=== PATIENT | female | born 1935 | race Hispanic/Latino ===

== ENCOUNTER 2019-06-18 12:41 | Observation (INO) | payer MEDICARE ==
[~2019-06-18] VITALS: Ht 157.5 cm; Wt 51.3 kg
[2019-06-18 13:32] LABS: BILIRUBIN,URINE NEGATIVE (NEGATIVE); CLARITY,URINE SL CLOUDY (CLEAR); COLOR,URINE YELLOW (YELLOW); KETONES,URINE NEGATIVE (NEGATIVE); LEUKOCYTE ESTERASE ,URINE NEGATIVE (NEGATIVE); NITRITE,URINE NEGATIVE (NEGATIVE); PROTEIN,URINE DIPSTICK NEGATIVE (NEGATIVE); URINE UROBILINOGEN 0.2 mg/dL (0.2 - 1)
[2019-06-18 14:19] LABS: EPITHELIAL CELLS,URINE RARE /LPF; RBC,URINE 0-5 /HPF (0-5)
--- NOTE | 2019-06-18 14:26 | Diagnostic Imaging Report ---
Examination: CT head without contrast Clinical Indication: Fall; head injury. Technique: Transaxial noncontrast images from the skull base through the vertex were obtained. Sagittal and coronal reformatted images were done. Dose modulation, iterative reconstruction, and/or weight based adjustment of the mA/kV was utilized to reduce the radiation dose to as low as reasonably achievable. Comparison: None. Findings: Scalp: No abnormalities. Bones: Intact. No fractures. No blastic or lytic lesions. Brain sulci: Appropriate for patient's age. Ventricles: Normal in size and configuration. No hydrocephalus. . Extra-axial space: No abnormalities. Parenchyma: There are mild confluent areas of low-attenuation within subcortical and periventricular white matter, nonspecific, but could represent microvascular ischemic disease. No masses, hemorrhage, or acute or chronic cortical based vascular insults. Suprasellar region: No abnormalities. Craniocervical junction: The foramen magnum is patent. No Chiari one malformation. Incidental findings: Atherosclerotic calcification of the cavernous and supraclinoid internal carotid arteries. Impression: 1. No acute intracranial finding. 2. Mild chronic microvascular ischemic change. Signed by: Dr. Kamala Winters M.D. on 06/18/2019 2:22 PM
[2019-06-18 14:38] LABS: BASOPHILS % 0.4 % (0.0-1.0); EOSINOPHILS % 0.1 % (0.0-6.0); HEMATOCRIT 38.3 % (34.2-44.1); HEMOGLOBIN 12.6 g/dL (12.0-16.0); LYMPHOCYTES # (AUTO) 1.3 (1.0-3.2); LYMPHOCYTES % 13.5 % (18.0-39.1); MEAN CORPUSCULAR HEMOGLOBIN 30.1 pg (28-32); MEAN CORPUSCULAR HGB CONC 32.9 g/dL (31-35); MEAN CORPUSCULAR VOLUME 91.4 fL (81-99); MONOCYTES # (AUTO) 0.6 (0.2-0.8); MONOCYTES % 6.1 % (4.4-11.3); NEUTROPHILS # (AUTO) 7.7 (2.1-6.9); NEUTROPHILS % 79.4 % (38.7-80.0); PLATELET COUNT 251 x10e3/uL (140-360); RED BLOOD COUNT 4.19 x10e6/uL (3.6-5.1); RED CELL DISTRIBUTION WIDTH 13.1 % (11.7-14.4)
[2019-06-18] MEDS: SODIUM CHLORIDE 0.9% 1000ML 1,000 ML IV ONE ×2 (14:39→15:12)
[2019-06-18 14:54] LABS: ALANINE AMINOTRANSFERASE 8 IU/L (0-55); ALBUMIN 3.9 g/dL (3.5-5.0); ALKALINE PHOSPHATASE 55 IU/L (40-150); ANION GAP 15.9 mmol/L (8-16); BLOOD UREA NITROGEN 16 mg/dL (7-26); BUN/CREATININE RATIO 20 (6-25); CALCIUM 10.5 mg/dL (8.4-10.2); CARBON DIOXIDE 25 mmol/L (22-29); CHLORIDE 102 mmol/L (98-107); CREATININE, SERUM 0.81 mg/dL (0.57-1.11); EST GLOMERULAR FILTRATION RATE > 60 ML/MIN (60-); GLUCOSE 105 mg/dL (74-118); POTASSIUM 3.9 mmol/L (3.5-5.1); SODIUM 139 mmol/L (136-145)
--- NOTE | 2019-06-18 15:04 | Diagnostic Imaging Report ---
EXAMINATION: CHEST SINGLE (PORTABLE) INDICATION: Trauma COMPARISON: None FINDINGS: LINES/TUBES:None LUNGS:The lungs are well-inflated. No focal consolidation or pulmonary edema. PLEURA:No pleural effusion or pneumothorax. MEDIASTINUM:The cardiomediastinal silhouette appears normal in size and shape. BONES/SOFT TISSUES:No acute osseous injury. Metallic anchors in the right proximal humerus. Partially visualized cervical spine fusion hardware. ABDOMEN:No free air under the diaphragm. IMPRESSION: No displaced fracture. No focal pneumonia or pulmonary edema. Signed by: Kirill Carlos MD on 06/18/2019 3:01 PM
--- NOTE | 2019-06-18 15:05 | Diagnostic Imaging Report ---
EXAMINATION: PELVIS AP 1-2 VIEWS INDICATION: Trauma COMPARISON: None FINDINGS: AP image of the pelvis demonstrates no acute fracture or dislocation. Mild degenerative changes of the partially visualized lower lumbar spine and of both hip joints. Nonobstructive bowel gas pattern. Phleboliths in the pelvis. IMPRESSION: No acute osseous injury. Signed by: Kirill Carlos MD on 06/18/2019 3:02 PM
[2019-06-18 15:13] LABS: MAGNESIUM 1.8 MG/DL (1.3-2.1)
[2019-06-18] MEDS ORDERED: ONDANSETRON HCL INJ 2MG/ML 2ML 2 MG/ML VIAL IV PRN (17:30)
[2019-06-18] MEDS ORDERED: SODIUM CHLORIDE FLUSH 10 ML SYR INJ PRN (17:30)
--- OUTSIDE RECORDS SUMMARY | 2019-06-18 17:59 | XMS REPORT ---
Author Author [facility] Address Unknown Phone Unavailable Care Team Providers Care [employer] Attendant Name Role Phone Swapna BARTLETT Unavailable Unavailable Problems This patient has no known problems. Allergies, Adverse Reactions, Alerts This patient has no known allergies or adverse reactions. Medications This patient has no known medications. Results Test Description Test Time Test Comments Text Results Atomic Results Result Comments PELVIS AP 1-2 VIEWS 2019-06-18 15:01:00 [place] [address] Patient Name: JERRY BOSTON MR #: [id number] : 1935 Age/Sex: 83/F Req #: [id number] Adm Physician: Ordered by: MISAEL BARTLETT MD Report #: [id number] Location: ER Room/Bed: Procedure: [id number] DX/PELVIS AP 1-2 VIEWS Exam Date: Exam Time: REPORT STATUS: Signed EXAMINATION: PELVIS AP 1-2 VIEWS INDICATION: Trauma COMPARISON: None FINDINGS: AP image of the pelvis demonstrates no acute fracture or dislocation. Mild degenerative changes of the partially visualized lower lumbar spine and of both hip joints. Nonobstructive bowel gas pattern. Phleboliths in the pelvis. IMPRESSION: No acute osseous injury. Signed by: Wolfgang Baez MD on 06/18/2019 3:02 PM Dictated By: WOLFGANG BAEZ MD 01 Transcribed By: RAJIV on 06/18/19 150 COPY TO: MISAEL BARTLETT MD CHEST SINGLE (PORTABLE) 2019-06-18 15:00:00 [place] [address] Patient Name: JERRY BOSTON MR #: [id number] : 1935 Age/Sex: 83/F Req #: [id number] Adm Physician: Ordered by: MISAEL BARTLETT MD Report #: [id number] Location: ER Room/Bed: Procedure: [id number] DX/CHEST SINGLE (PORTABLE) Exam Date: Exam Time: REPORT STATUS: Signed EXAMINATION: CHEST SINGLE (PORTABLE) INDICATION: Tr auma COMPARISON: None FINDINGS: LINES/TUBES:None LUNGS:The lungs are well-inflated. No focal consolidation or pulmonary edema. PLEURA:No pleural effusion or pneumothorax. MEDIASTINUM:The cardiomediastinal silhouette appears normal in size and shape. BONES/SOFT TISSUES:No acute osseous injury. Metallic anchors in the right proximal humerus. Partially visualized cervical spine fusion hardware. ABDOMEN:No free air under the diaphragm. IMPRESSION: No displaced fracture. No focal pneumonia or pulmonary edema. Signed by: Wolfgang Baez MD on 06/18/2019 3:01 PM Dictated By: WOLFGANG BAEZ MD 00 Transcribed By: RAJIV on 06/18/191500 COPY TO: MISAEL BARTLETT MD CT BRAIN WO 2019-06-18 14:18:00 [place] [address] Patient Name: JERRY BOSTON MR #: [id number] : 1935 Age/Sex: 83/F Req #: [id number] Adm Physician: Ordered by: MISAEL BARTLETT MD Report #: [id number] Location: Room/Bed: Procedure: [id number] CT/CT BRAIN WO Exam Date: 06/18/19 Exam Time: 1338 REPORT STATUS: Signed Examination: CT head without contrast Clinical Indication: Fall; head injury. Technique: Transaxial noncontrast images from the skull base through the vertex were obtained. Sagittal and coronal reformatted images were done. Dose modulation, iterative reconstruction, and/or weight based adjustment of the mA/kV was utilized to reduce the radiation dose to as low as reasonably achievable. Comparison: None. Findings: Scalp: No abnormalities. Bones: Intact. No fractures. No blastic or lytic lesions. Brain sulci: Appropriate for patient's age. Ventricles: Normal in size and configuration. No hydrocephalus. . Extra-axial space: No abnormalities. Parenchyma: There are mild confluent areas of low- attenuation within subcortical and periventricular white matter, nonspecific, but could represent microvascular ischemic disease. No masses, hemorrhage, or acute or chronic cortical based vascular insults. Suprasellar region: No abnormalities. Craniocervical junction: The foramen magnum is patent. No Miko ri one malformation. Incidental findings: Atherosclerotic calcification of the cavernous and supraclinoid internal carotid arteries. Impression: 1. No acute intracranial finding. 2. Mild chronic microvascular ischemic change. Signed by: Dr. Kamala Winters M.D. on 06/18/2019 2:22 PM Dictated By: KAMALA GALLEGOS MD [id number] Transcribed By: RAJIV on 06/18/191421 COPY TO: MISAEL BARTLETT MD
--- NOTE | 2019-06-18 19:51 | NUR ---
Received patient from ER. Patient in stable condition, no s/s of distress or c/o pain at this time. All safety measures in place. Family at bedside. Will continue to monitor.
[2019-06-18] MEDS ORDERED: OXYBUTYNIN CHLOR5 MG PO (20:06)
[2019-06-18] MEDS ORDERED: LOSARTAN POTAS100 MG PO (20:06)
[2019-06-18] MEDS ORDERED: CARBIDOPA-LEVO1 EAC1 PO (20:06)
[2019-06-18] MEDS ORDERED: SIMVASTATIN40 MG PO (20:06)
[2019-06-18] MEDS ORDERED: HYDROCHLOROTH12.5 MG PO (20:06)
[2019-06-18 20:54] VITALS: BP 176/73
[2019-06-18] MEDS: SODIUM CHLORIDE 0.9% 1000ML 1,000 ML IV SCH (21:20)
[2019-06-18 21:32] VITALS: BP 176/73
[2019-06-18 21:58] VITALS: BP 176/73
[2019-06-18 22:13] VITALS: BP_SYST 135; BP_SYST 151; BP_SYST 160; BP_DIAS 56; BP_DIAS 69; BP_DIAS 71
[2019-06-19] VITALS (8 sets, daily range): BP systolic 138–155; BP diastolic 49–70
[2019-06-19] MEDS: SODIUM CHLORIDE 0.9% 1000ML 1,000 ML IV SCH ×3 (08:37→20:18)
[2019-06-19] MEDS: LOSARTAN POTASSIUM 100 MG TAB PO SCH (12:26)
--- NOTE | 2019-06-19 13:46 | NUR ---
PATIENT IS AWAKE AND IN STABLE CONDITION WITH NO S/S OF RESPIRATORY DISTRESS. NO PAIN VOICED. IV FLUIDS INFUSING. TELEMETRY APPLIED. [id number] PRESENT IN ROOM. BED ALARM APPLIED. CALL LIGHT IS WITHIN REACH, PATIENT IS INSTRUCTED TO CALL FOR ASSISTANCE NEEDED.
[2019-06-19] MEDS: CARBIDOPA/LEVODOPA 25/100 TAB PO SCH ×2 (15:16→20:18)
--- NOTE | 2019-06-19 17:56 | History and Physical ---
Ms. Palomares is a pleasant 83-year-old woman with Parkinson disease, who presented to the emergency room in the afternoon of with a complaint of having fallen down at home. HISTORY OF PRESENT ILLNESS: The family tells us it appears that she may have been walking going to the bathroom at night and may have fallen and hit her head, perhaps slipping on a carpet and was found by family later on after some period of time, perhaps of unconsciousness. PAST MEDICAL HISTORY: Significant for Parkinson disease as mentioned above. Family says she has predominantly rigidity rather than tremor. She was seen by Dr. Zuluaga in the past and given carbidopa/levodopa. She continues to take this medication. She reports that she has had gallbladder surgery and carpal tunnel surgeries. CURRENT MEDICATIONS: At home include carbidopa/levodopa 25/100 t.i.d., hydrochlorothiazide 12.5 mg daily, losartan 100 mg daily, oxybutynin 5 mg daily as needed, and simvastatin 40 mg daily. PERSONAL AND SOCIAL HISTORY: She does not smoke or drink. She lives at home with family. REVIEW OF SYSTEMS: CARDIAC: She denies any chest pain, palpitations, shortness of breath, or edema. PHYSICAL EXAMINATION: GENERAL: At this time shows elderly Latin-Tuvaluan woman, who speaks only Wolof. Alert and oriented. VITAL SIGNS: Blood pressure 140/60, pulse 60 and regular. HEAD, EYES, EARS, NOSE, AND THROAT: Remarkable for partial dentures. No significant contusion is visible. NECK: No jugular venous distention. No bruits. THORAX: Heart sounds S1 and S2 are equal. No murmurs. LUNGS: Clear. ABDOMEN: Protuberant. Normal bowel sounds. EXTREMITIES: There are no cyanosis, clubbing, or edema. DIAGNOSTIC DATA: Chest x-ray is unremarkable. Pelvis x-ray unremarkable. CT of the head suggests calcification in the internal carotids with no other significant abnormality. Echocardiogram shows normal left ventricular function with EF 62% and mild aortic insufficiency. ASSESSMENT: 1. Fall. 2. Possible concussion. 3. Parkinson disease. PLAN: We will ask for Neurology consultation and obtain carotid Doppler scan and monitor on telemetry. Further management based on clinical course. MD DWIGHT Jimenes/HANS /[id number] cc: MD Mary Holguin MD
--- NOTE | 2019-06-19 19:48 | NUR ---
PATIENT IS SITTING IN THE CHAIR- IN STABLE CONDITION WITH NO S/S OF RESPIRATORY DISTRESS. NO PAIN VOICED. IV FLUIDS INFUSING. [id number] PRESENT IN ROOM. CALL LIGHT IS WITHIN REACH, PATIENT IS INSTRUCTED TO CALL FOR ASSISTANCE NEEDED. BEDSIDE REPORT GIVEN TO ONCOMING NURSE.
[2019-06-19] MEDS ORDERED: SIMVASTATIN 40 MG TAB PO SCH (21:00)
--- NOTE | 2019-06-19 22:08 | Consultation ---
DATE OF CONSULTATION: 06/19/2019 Neurology Consult Note HISTORY OF PRESENT ILLNESS: Ms. Palomares is an 83-year-old right-hand dominant woman with past medical history significant for hypertension, hyperlipidemia, osteoarthritis, and Parkinson's disease, admitted to [facility] under observation status on June 18, 2019, status post an unwitnessed fall. According to the patient, at approximately 0600 on the day of admission, she arose from bed to use the restroom. While ambulating either to or from the restroom, the patient experienced a sudden onset of dizziness, which is further described as lightheadedness and collapsed to the floor. Ms. Palomares does not report chest pain or tightness, shortness of breath, vertigo, or an epigastric rising sensation preceding the fall. Ms. Palomares did hit her head on the left side as she fell. She did lose consciousness for an unknown period of time. Upon regaining consciousness, the patient does not recall experiencing myalgias, arthralgias. She did not notice bruises or abrasions anywhere on her body. There was no reported tongue biting or bladder or bowel incontinence. Unfortunately, the patient was unable to rise from the floor without assistance. Her family subsequently found her, assisted her from the floor, then brought her to the emergency center at [facility] for further evaluation. Upon arrival in the emergency center, the patient's temperature was 99.3 degrees Fahrenheit. Her blood pressure was 192/77 mmHg with a pulse of 18 breaths per minute. Of note, the patient has experienced intermittent bradycardia to the mid 50s during her hospitalization. In the emergency center, the patient's neurological examination was documented as being nonfocal. A CT of the brain without contrast was performed while the patient was in the emergency center. This study did not reveal evidence of recent large territorial ischemia or hemorrhage. Ms. Palomares was subsequently admitted to [facility] for further evaluation and treatment of her symptoms. There is no known personal or family history of seizures. The patient does not report prior significant head trauma or meningitis/encephalitis. As stated above, Ms. Palomares does carry a diagnosis of Parkinson disease for which she takes carbidopa-levodopa 25-100 mg by mouth 3 times daily. Ms. Palomares does endorse poor balance with impairment of gait, two symptoms which are characteristic of Parkinson disease. The patient's varngu-qv-goo, who is at the bedside, suspects Ms. Palomares tripped on some carpeting and subsequently fell as detailed above. REVIEW OF SYSTEMS: Joint pain, generalized weakness, impairment of balance and gait. Otherwise, a 12-point review of systems is negative. PAST MEDICAL HISTORY: Hypertension, hyperlipidemia, osteoarthritis, Parkinson disease. PAST SURGICAL HISTORY: Bilateral carpal tunnel release in 2012, left knee replacement in 2013, cholecystectomy in 1984, cervical spine surgery, bilateral cataract removal. PAST HOSPITALIZATIONS: Surgeries/procedures as listed, childbirth x5. FAMILY MEDICAL HISTORY: Hypertension and glaucoma. SOCIAL HISTORY: Ms. Palomares is a . She is retired. The patient does not report current or prior tobacco, alcohol, or recreational drug use. HOME MEDICATIONS: Carbidopa-levodopa 25-100 mg by mouth 3 times daily, hydrochlorothiazide 12.5 mg by mouth daily, losartan 100 mg by mouth daily, simvastatin 40 mg by mouth at bedtime daily, oxybutynin 5 mg by mouth daily. HOSPITAL MEDICATIONS: Carbidopa-levodopa, losartan, Zofran, oxybutynin, simvastatin. ALLERGIES: NO KNOWN DRUG ALLERGIES. NO KNOWN FOOD ALLERGIES. NO KNOWN ALLERGIES TO LATEX. NO KNOWN ALLERGIES TO IODINE OR OTHER CONTRAST MATERIALS. PHYSICAL EXAMINATION: VITAL SIGNS: Height 62 inches, weight 113 pounds, BMI 20.7 kg/m2. Blood pressure 144/65 mmHg, pulse 58 beats per minute, respiratory rate 18 breaths per minute, and oxygen saturation 99% on room air. GENERAL: The patient is awake and alert, does not appear distressed. Normal body habitus. HEENT: Normocephalic, atraumatic. Pupils are surgical. Moist mucous membranes. NECK: Supple. No appreciable thyromegaly. No appreciable carotid bruits. CARDIOVASCULAR: S1, S2, regular rate and rhythm. No murmurs, rubs, or gallops. RESPIRATORY: Clear to auscultation bilaterally. No wheezes, rhonchi, or rales. EXTREMITIES: The skin is warm and dry. No clubbing, cyanosis, or edema. The posterior tibial and dorsalis pedis pulses are 2+ and symmetric. SKIN: No rashes or lesions. NEUROLOGIC: Memory/Attention: The patient is awake and alert, oriented to person, place, time, and situation. Cranial Nerves: Cranial nerve I - not tested. Cranial nerve II, III, IV, and - pupils are surgical. Extraocular movements are intact with the exception of mildly impaired upward gaze. No nystagmus. Cranial nerve V - sensation to light touch and pinprick is intact in the bilateral V1 through V3 distributions. Strength of the temporalis and masseter muscles are within normal limits. Cranial nerve VII - the face is symmetric as are all facial movements. Strength is within normal limits. Cranial nerve VIII - hearing is intact to finger rub bilaterally. Cranial nerve IX, X - the soft palate elevates equally and symmetrically. Cranial nerve XI - normal strength of the bilateral sternocleidomastoid and trapezius muscles. Cranial nerve XII - the tongue protrudes midline and moves symmetrically from notm-oh-gqyp. Strength: Bulk is mildly diminished throughout. Strength is 5/5 in the bilateral deltoids, triceps, biceps, brachioradialis, wrist flexors and extensors, finger flexors and extensors, intrinsic hand muscles, hip flexors, knee flexors and extensors, ankle dorsiflexion and plantar flexion, and intrinsic foot muscles. Tone is mildly increased in the right arm. DTRs: Deep tendon reflexes are 1+ and symmetric at the triceps, biceps, brachioradialis, patellas, and Achilles. Plantar responses are flexor bilaterally. Sensation: Sensation is intact to light touch and pinprick in both arms and both legs. Cerebellar: Brpnga-ycvm-yygmlc and heel-song movements are intact without dysmetria or other impairment. There is segmental hypokinesis with finger and toe tapping on the right. Gait: Deferred. Speech: Spontaneous speech is hypophonic without appreciable dysarthria or aphasia. Repetition is intact. Involuntary movements: None. Pronator Drift: None. LABORATORY DATA: A comprehensive metabolic panel is unremarkable. The CBC with differential and platelets is unremarkable. Urinalysis reveals slightly cloudy urine, but is otherwise unremarkable. DIAGNOSTIC STUDIES: Electrocardiogram, 06/19/2019: Sinus bradycardia at [address] of the brain without contrast 06/18/2019: On my review, there is no evidence of recent or remote large territorial ischemia, hemorrhage, mass, or mass effect. Cerebral volumes are appropriate for age. There are findings compatible with qmed-si-ummvfmco chronic small-vessel ischemic disease. Pelvis x-ray, 06/18/2019: No acute osseous injury. Chest x-ray, 06/18/2019: No displaced fracture. No focal pneumonia or pulmonary edema. Echocardiogram, 06/19/2019: Ejection fraction 60%. Concentric left ventricular hypertrophy. Aortic valve calcification. Trace aortic insufficiency and tricuspid regurgitation. ASSESSMENT AND PLAN: Ms. Palomares is an 83-year-old right-hand dominant woman with past medical history as detailed, admitted to [facility] under observation status on June 18, 2019, status post unwitnessed fall. The patient's neurological examination demonstrates findings compatible with her known diagnosis of Parkinson disease. Ms. Palomares's laboratory data and other diagnostic studies have been reviewed and are documented above. If Ms. Palomares experienced a true syncopal event, causes for syncope are most likely to be either cardiac or renal in origin. Further evaluation of these potential causes is deferred to the primary service. It is possible, the patient's poor balance and impairment of gait secondary to Parkinson disease resulted in a fall. RECOMMENDATIONS: Are as follows: 1. Continue the patient's home medication of carbidopa-levodopa 25-100 mg by mouth 3 times daily. 2. Agree with a physical therapy evaluation. Follow up on those recommendations. 3. Defer further evaluation/treatment of other medical comorbidities to the primary/other services following the patient. 4. Anticipated disposition: Home with physical therapy either as an outpatient or through home health in 1-2 days. Thank you for this consultation. There are no other recommendations from the Neurology Service at this time. Please call again with any questions or concerns. TIME SPENT: 70 minutes. Mary Ya MD CP/HANS /[id number] ADRIAN
[2019-06-20 00:20] VITALS: BP 127/64
[2019-06-20 05:42] VITALS: BP 157/64
--- NOTE | 2019-06-20 07:09 | NUR ---
PT ASLEEP RESP EVEN AND UNLABORED, NO DISTRESS NOTED, PT EASILY AROUSED AT THIS TIME, PT ABLE TO MAKE NEEDS KNOWN, CALL LIGHT IN REACH.
[2019-06-20 07:30] VITALS: BP 147/68
[2019-06-20 08:23] VITALS: BP 147/68
[2019-06-20] MEDS: LOSARTAN POTASSIUM 100 MG TAB PO SCH (08:53)
[2019-06-20] MEDS: CARBIDOPA/LEVODOPA 25/100 TAB PO SCH (08:53)
[2019-06-20] MEDS: SODIUM CHLORIDE 0.9% 1000ML 1,000 ML IV SCH (08:53)
[2019-06-20] MEDS ORDERED: OXYBUTYNIN CHLORIDE XL 5 MG TAB PO SCH (09:00)
[2019-06-20] MEDS ORDERED: OXYBUTYNIN CHLORIDE 5 MG TAB PO SCH (09:00)
[2019-06-20] MEDS ORDERED: ONDANSETRON HCL 4 MG ORAL DISINTEGRATING TAB PO PRN (11:00)
[2019-06-20 11:06] VITALS: BP 140/65
--- NOTE | 2019-06-20 14:03 | NUR ---
received order for home health. discussed with patient and sister in law. they [facility] clinicals faxed to [phone].
--- NOTE | 2019-06-20 15:00 | NUR ---
PT DISCHARGED HOME WITH FAMILY MEMBER, PT WAS GIVEN INFORMATION TO FOLLOW UP WITH HER PHYSICIANS, PT IV SITE REMOVED, NO SWELLING NO REDNESS TO SITE.
--- NOTE | 2019-06-20 15:34 | NUR ---
spoke to heber at [facility]. everly states they have a indonesian speaking nurse. clinicals faxed to [phone], patient given information for [facility] before d/c.
--- NOTE | 2019-06-21 11:37 | Discharge Summary ---
HISTORY: Ms. Palomares is a pleasant, very elderly 83-year-old woman who presented to the emergency room after falling down and being found on the floor by her family. HOSPITAL COURSE: While it was considered that she could have had syncope, it appears that more likely she slipped and fell on the carpet and struck her head on the floor. CAT scan of the head does not suggest any fracture or intracranial process. She was seen in consultation by Dr. Ya, who agreed that she had Parkinson disease and agree with medications. She has been evaluated by physical therapy. Her echo and carotid Doppler scans were unremarkable. Today, the patient has reached her baseline status and is eager to be discharged to home. She is discharged to continue her pre-hospital medications and will follow up with Dr. Caceres and Dr. Ya in the office. DISCHARGE DIAGNOSES: 1. Fall. 2. Contusion. 3. Parkinson disease. 4. Hypertension. 5. Hyperlipidemia. MD DWIGHT Jimenes/HANS /[id number] cc: MD Sal Lomeli MD
== END 2019-06-20 15:05 | disposition home health service (06) ==
LOC: ER 12:41 → ERHOLD 17:17 → MED/SURG3 19:29
PROVIDERS: ADMIT Internal Medicine Cardiovascular Disease; ATTEND Internal Medicine Cardiovascular Disease
DX: G20 Parkinson's disease (principal); W01.198A Fall on same level from slipping, tripping and stumbling with subsequent striking against other object, initial encounter; Y93.01 Activity, walking, marching and hiking; Y92.012 Bathroom of single-family (private) house as the place of occurrence of the external cause; I10 Essential (primary) hypertension; E78.5 Hyperlipidemia, unspecified; M19.90 Unspecified osteoarthritis, unspecified site; R55 Syncope and collapse
CPT/HCPCS: 36415; 70450; 71045; 72170; 80053; 81001; 83735; 84484; 85025; 93005 ×2; 93306; 93880; 97116; 97161; 99284; G0378 ×3; J7030 ×3